=== PATIENT | female | born 1970 | race Asian ===

== ENCOUNTER 2017-06-17 20:30 | Emergency (ER) | payer OTHER ==
[2017-06-17 20:39] VITALS: BP 109/37
--- NOTE | 2017-06-17 20:42 | UC ---
Skin Complaint HPI - HPI Summary HPI Summary: 46 YEAR OLD FEMALE PRESENTS WITH COMPLAINS OF RASH. - History of Current Complaint Time Seen by Provider: 06/17/17 20:38 Stated Complaint: RASHES Hx Obtained From: Patient Hx Last Menstrual Period: <1 WEEK AGO Onset/Duration: Sudden Onset Onset Severity: Moderate Current Severity: Moderate - Allergy/Home Medications Allergies/Adverse Reactions: Allergies Allergy/AdvReac Type Severity Reaction Status Date / Time Penicillins Allergy Unknown Verified 06/17/17 20:39 Reaction Details Home Medications: Home Medications Ibuprofen TAB* [Advil TAB*] 06/17/17 [History] diPHENhydraMINE PO* [Benadryl PO 25 MG TAB*] 50 mg PO PRN 06/17/17 [History] Review of Systems Constitutional: Negative Skin: Rash Eyes: Negative ENT: Negative Respiratory: Negative Cardiovascular: Negative Gastrointestinal: Negative Genitourinary: Negative Motor: Negative Neurovascular: Negative Musculoskeletal: Negative Neurological: Negative Psychological: Negative All Other Systems Reviewed And Are Negative: Yes PMH/Surg Hx/FS Hx/Imm Hx Previously Healthy: Yes - Surgical History Surgical History: Yes Surgery Procedure, Year, and Place: CSECTION - Family History Known Family History: Positive: Unknown - Social History Alcohol Use: None Substance Use Type: None Smoking Status (MU): Never Smoked Tobacco Physical Exam Triage Information Reviewed: Yes Vital Signs: Initial Vital Signs Temp 38.1 C 06/17/17 20:35 Pulse 74 06/17/17 20:35 Resp 16 06/17/17 20:35 BP 109/37 06/17/17 20:35 Pulse Ox 96 06/17/17 20:35 Eye Exam: Normal ENT Exam: Normal Dental Exam: Normal Neck exam: Normal Neck: Positive: 1 Respiratory Exam: Normal Cardiovascular Exam: Normal Abdominal Exam: Normal Musculoskeletal Exam: Normal Neurological Exam: Normal Psychological Exam: Normal Skin Exam: Normal Course/Dx - Diagnoses Provider Diagnoses: RASH Discharge - Discharge Plan Condition: Stable Disposition: HOME Prescriptions: LoraTADine TAB(NF) [Claritin 10 MG TAB(NF)] 10 mg PO DAILY #30 tab Methylprednisolone [Medrol Dosepak 4 MG*] 4 mg PO .SEE KAMRAN INSTRUCTION #21 tab Triamcinolone 0.1% CREAM (NF) [Kenalog 0.1% Cream (NF)] 1 applic TOPICAL TID PRN #90 gm PRN Reason: Itching Patient Education Materials: Acute Rash (ED) Referrals: No Primary Care Phys,NOPCP [Medical Doctor] -
[2017-06-17] MEDS ORDERED: methylPREDNISolone 125 MG* 2 ML VIAL IM ONE (20:56)
[2017-06-17] MEDS ORDERED: LoraTADine TAB(NF) 10 MG TAB (AUTOSUB to CETIRIZINE) PO ONE (21:04)
== END 2017-06-17 21:16 | disposition home or self-care (01) ==
LOC: UCEAST 20:30
DX: R21 Rash and other nonspecific skin eruption (principal); Z88.0 Allergy status to penicillin
CPT/HCPCS: 96372; 99212; A9270-GY; G0463; J2930